=== PATIENT | male | born 1940 | race Two or more races ===

== ENCOUNTER 2025-05-21 08:43 | Emergency (ER) | payer OTHER ==
[~2025-05-21] VITALS: Ht 170.2 cm; Wt 81.6 kg
[2025-05-21] MEDS ORDERED: NORVASC5 MG (09:08)
[2025-05-21] MEDS ORDERED: TAMS0.4C (09:08)
[2025-05-21] MEDS ORDERED: LIPITOR40 M1 (09:08)
[2025-05-21] MEDS ORDERED: ATACAND32 MG (09:08)
== END 2025-05-21 11:15 | disposition home or self-care (01) ==
LOC: ER 08:43
DX: S42.392A Other fracture of shaft of left humerus, initial encounter for closed fracture (principal)